=== PATIENT | male | born 1980 | race Caucasian/White ===

== ENCOUNTER 2018-08-20 14:27 | Inpatient (IN) | payer OTHER ==
--- NOTE | 2018-08-20 14:54 | EDPHY ---
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 He states that 4 days ago he developed some swelling in his right arm. It is gradually decreased since then. Today he presented to his primary Dr. Mario Cagle who had an ultrasound done that revealed right upper extremity DVT. He sent him here with a disc. The patient otherwise a denies chest pain or shortness of breath or other systemic symptoms. No leg pain or swelling. He is not tachycardic. Patient states that the day before his symptoms developed he was doing a deep tissue massage in his right axilla to release tendons. 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 He thinks that this may provoked to symptoms. No erythema or warmth. Severity: Mild Modifying factors: Gradually improving REVIEW OF SYSTEMS: Constitutional: denies: chills, fever, recent illness, recent injury EENTM: denies: blurred vision, double vision, nose congestion Respiratory: denies: cough, shortness of breath Cardiac: denies: chest pain, irregular heart rate, lightheadedness, palpitations Gastrointestinal/Abdominal: denies: abdominal pain, diarrhea, nausea, vomiting, blood streaked stools Genitourinary: denies: dysuria, frequency, hematuria, pain Musculoskeletal: See HPI Skin: denies: lesions, rash, jaundice, bruising Neurological: denies: headache, numbness, paresthesia, tingling, dizziness, weakness Hematologic/Lymphatic: denies: blood clots, easy bleeding, easy bruising Immunologic/allergic: denies: HIV/AIDS, transplant 10 systems reviewed and negative except as noted EXAM: GENERAL: Well-appearing, well-nourished and in no acute distress. HEAD: Atraumatic, normocephalic. EYES: Pupils equal round and reactive to light, extraocular movements intact, sclera anicteric, conjunctiva are normal. ENT: TMs normal, nares patent, oropharynx clear without exudates. Moist mucous membranes. NECK: Normal range of motion, supple without lymphadenopathy or JVD. LUNGS: Breath sounds clear to auscultation bilaterally and equal. No wheezes rales or rhonchi. HEART: Regular rate and rhythm without murmurs, rubs or gallops. ABDOMEN: Soft, nontender, normoactive bowel sounds. No guarding, no rebound. No masses appreciated. BACK: No CVA tenderness, no spinal tenderness, step-offs or deformities EXTREMITIES: Minimal swelling to right forearm and wrist. Normal range of motion. Minimal bruising to right anterior shoulder. Normal sensation and strength. NEUROLOGICAL: Cranial nerves II through XII grossly intact. Normal speech, normal gait. 5/5 strength, normal movement in all extremities, normal sensation , normal reflexes PSYCH: Normal mood, normal affect. SKIN: Warm, dry, normal turgor, no visible rashes or lesions. Source: Patient Exam Limitations: No limitations - Personal History Current Tetanus Diphtheria and Acellular Pertussis (TDAP): Yes - Medical/Surgical History Hx Asthma: No Hx Chronic Respiratory Disease: No Hx Diabetes: No Hx Cardiac Disease: No Hx Renal Disease: No Hx Cirrhosis: No Hx Alcoholism: No Hx HIV/AIDS: No Hx Splenectomy or Spleen Trauma: No Other PMH: denies - Family History Significant Family History: No pertinent family hx - Social History Smoking Status: Current every day smoker Alcohol Use: Sober Drug Use: None Constitutional: Initial Vital Signs Temperature (C) 36.7 C 08/20/18 14:30 Heart Rate 57 L 08/20/18 14:30 Respiratory Rate 18 08/20/18 14:30 Blood Pressure 156/98 H 08/20/18 14:30 O2 Sat (%) 96 08/20/18 14:30 O2 Delivery Mode Room Air Allergies/Adverse Reactions: No Known Allergies Allergy (Unverified 08/20/18 14:33) Home Medications: Medication Instructions Recorded Ibuprofen [Motrin (*)] 400 mg PO BID PRN 08/20/18 Medical Decision Making ED Course/Re-evaluation: Our radiologist are unable to adequately read the images sent on the disc. We did contact [facility] and received a report from them. They read extensive occlusive right subclavian, axillary and brachial vein thrombosis. I will discuss this with interventional Radiology. I did [facility] who feels like if the patient is relatively asymptomatic he can simply be treated at home with Xarelto. 3:15 p.m. I discussed the case with Baljit Nguyen. She recommends the patient receive thrombolysis for what is likely thoracic outlet syndrome and be evaluated for an extra rib and have surgery remove the extra of his present. She states that this can happen tomorrow if the patient stays here tonight on heparin or it could be done as an elective procedure if he stays overnight on Sunday night on a heparin drip. The patient is the uninsured and is questioning which option would be cheaper. Will have case management speak with him. 3:30 p.m. discussed the case with Dr. Centeno who will admit. Will keep on heparin drip tonight. Case management spoke with financial counseling who agrees that the best option is for the patient to stay overnight tonight. Differential Diagnosis: Partial list of the Differential diagnosis considered include but were not limited to; DVT, thoracic outlet syndrome and although unlikely based on the history and physical exam, I also considered fracture, infection, dissection. - Data Points Laboratory Results: Laboratory Results 08/20/18 14:53 08/20/18 14:53 08/20/18 08/20/18 08/20/18 14:53 14:53 14:53 WBC 7.02 10^3/uL 10^3/uL (3.80-9.50) RBC 4.92 10^6/uL 10^6/uL (4.40-6.38) Hgb 15.4 g/dL g/dL (13.7-17.5) Hct 46.1 % % (40.0-51.0) MCV 93.7 fL fL (81.5-99.8) MCH 31.3 pg pg (27.9-34.1) MCHC 33.4 g/dL g/dL (32.4-36.7) RDW 12.6 % % (11.5-15.2) Plt Count 255 10^3/uL 10^3/uL (150-400) MPV 9.3 fL fL (8.7-11.7) Neut % (Auto) 67.5 % % (39.3-74.2) Lymph % (Auto) 22.1 % % (15.0-45.0) Barton % (Auto) 6.8 % % (4.5-13.0) Eos % (Auto) 2.4 % % (0.6-7.6) Baso % (Auto) 1.1 % % (0.3-1.7) Nucleat RBC Rel Count 0.0 % % (0.0-0.2) Absolute Neuts (auto) 4.73 10^3/uL 10^3/uL (1.70-6.50) Absolute Lymphs (auto) 1.55 10^3/uL 10^3/uL (1.00-3.00) Absolute Monos (auto) 0.48 10^3/uL 10^3/uL (0.30-0.80) Absolute Eos (auto) 0.17 10^3/uL 10^3/uL (0.03-0.40) Absolute Basos (auto) 0.08 10^3/uL 10^3/uL (0.02-0.10) Absolute Nucleated RBC 0.00 10^3/uL 10^3/uL (0-0.01) Immature Gran % 0.1 % % (0.0-1.1) Immature Gran # 0.01 10^3/uL 10^3/uL (0.00-0.10) PT 12.7 SEC SEC (12.0-15.0) INR 0.99 (0.83-1.16) APTT 27.2 SEC SEC (23.0-38.0) Sodium 140 mEq/L mEq/L (135-145) Potassium 4.2 mEq/L mEq/L (3.5-5.2) Chloride 106 mEq/L mEq/L (97-110) Carbon Dioxide 24 mEq/l mEq/l (22-31) Anion Gap 10 mEq/L mEq/L (6-14) BUN 12 mg/dL mg/dL (7-23) Creatinine 0.9 mg/dL mg/dL (0.7-1.3) Estimated GFR > 60 Glucose 86 mg/dL mg/dL (70-100) Calcium 9.8 mg/dL mg/dL (8.5-10.4) Medications Given: Discontinued Medications Heparin Sodium (Porcine) (Heparin Injection) 0 unit IVP EDNOW ONE Stop: 08/20/18 15:37 Last Admin: 08/20/18 16:09 Dose: 5,520 units Heparin Sodium (Porcine) (Heparin 50 Units/Ml (Premix)) 500 mls @ 0 mls/hr IV EDNOW ONE; Per Protocol PRN Reason: Protocol Stop: 08/20/18 15:37 Last Admin: 08/20/18 16:10 Dose: 500 mls Departure - Departure Disposition: [facility] Acute Clinical Impression: Deep venous thrombosis of right upper extremity Qualifiers: Affected thrombotic vein of extremity: unspecified vein of extremity Chronicity : acute Qualified Code(s): I82.621 - Acute embolism and thrombosis of deep veins of right upper extremity Condition: Fair
[2018-08-20 15:06] LABS: PLATELET COUNT 255 10^3/uL (150-400)
[2018-08-20 15:23] LABS: INR 0.99 (0.83-1.16); PROTIME(PATIENT) 12.7 SEC (12.0-15.0)
[2018-08-20] MEDS ORDERED: HEPARIN/DEXTROSE 500 ML IV ONE (15:36)
[2018-08-20] MEDS ORDERED: HEPARIN 10,000 UNIT/10 ML MDV (1,000 UNIT/ML) IVP ONE (15:36)
[2018-08-20] MEDS ORDERED: ONDANSETRON 4 MG/2 ML VIAL IVP PRN (16:09)
[2018-08-20] MEDS ORDERED: ONDANSETRON DISINTEGRATING 4 MG TAB PO PRN (16:09)
[2018-08-20] MEDS ORDERED: ACETAMINOPHEN 325 MG TAB PO PRN (16:09)
[2018-08-20] MEDS ORDERED: NS 1,000 ML IV SCH (16:15)
--- NOTE | 2018-08-20 16:22 | PDGENHP ---
History and Physical - Chief Complaint left arm swelling - History of Present Illness Yovany Antonio is a 37-year-old male with no past medical history who presented to the emergency room with complaints of right upper extremity swelling since of last week. He denied any trauma to his arm. 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 He thought he just had tight muscles and so gave himself a bicep massage. Sunday the swelling was skin considerably worse. Over the next few days the swelling mildly diminished. He saw his friend who was a masseuse who immediately said he needed to see a doctor and so he saw a primary care physician today. They obtained a upper extremity ultrasound did sent into the emergency room. He has denied any shortness of breath or pain in his upper extremity. He still has good pulses and does not feel any tingling or paresthesias. Otherwise he denied any cough shortness of breath fevers chills nausea vomiting or other symptoms. History Information - Allergies/Home Medication List Allergies/Adverse Reactions: No Known Allergies Allergy (Unverified 08/20/18 14:33) Home Medications: Ibuprofen [Motrin (*)] 400 mg PO BID PRN 08/20/18 [Last Taken 08/19/18] Zeolite 1 each PO DAILY 08/20/18 [Last Taken Unknown] I have personally reviewed and updated: family history, medical history, social history, surgical history - Past Medical History no pertinent PMH - Surgical History Reports: no pertinent surgical hx - Family History Positive for: non-pertinent - Social History Smoking Status: Current every day smoker Alcohol Use: Sober Drug Use: None, Marijuana Review of Systems Review of Systems: ROS: 10pt was reviewed & negative except for what was stated in HPI & below Physical Exam Physical Exam: Temp Pulse Resp BP Pulse Ox 36.7 C 55 L 16 152/91 H 96 08/20/18 14:30 08/20/18 16:00 08/20/18 16:00 08/20/18 16:00 08/20/18 16:00 Constitutional: no apparent distress, appears nourished, not in pain Eyes: PERRL, anicteric sclera, EOMI Ears, Nose, Mouth, Throat: moist mucous membranes, hearing normal, ears appear normal, no oral mucosal ulcers Cardiovascular: regular rate and rhythym, no murmur, rub, or gallop, No edema ( Right upper extremity with substantial swelling. Radial pulses still 2+ good capillary refill) Respiratory: no respiratory distress, no rales or rhonchi, clear to auscultation Gastrointestinal: normoactive bowel sounds, soft, non-tender abdomen, no palpable masses Genitourinary: no bladder fullness, no bladder tenderness Skin: warm, normal color, no rashes or abrasions, no fluctuance, no induration, No mottled Musculoskeletal: full muscle strength, no muscle tenderness, normal joint ROM, no joint effusions Psychiatric: interacting appropriately, not anxious, not encephalopathic, thought process linear Lymph, Heme, Immunologic: no cervical LAD, no supraclavicular LAD Lab Data & Imaging Review 08/21/18 11:05 08/21/18 04:46 WBC 7.02 10^3/uL (3.80-9.50) 08/20/18 14:53 RBC 4.92 10^6/uL (4.40-6.38) 08/20/18 14:53 Hgb 15.4 g/dL (13.7-17.5) 08/20/18 14:53 Hct 46.1 % (40.0-51.0) 08/20/18 14:53 MCV 93.7 fL (81.5-99.8) 08/20/18 14:53 MCH 31.3 pg (27.9-34.1) 08/20/18 14:53 MCHC 33.4 g/dL (32.4-36.7) 08/20/18 14:53 RDW 12.6 % (11.5-15.2) 08/20/18 14:53 Plt Count 255 10^3/uL (150-400) 08/20/18 14:53 MPV 9.3 fL (8.7-11.7) 08/20/18 14:53 Neut % (Auto) 67.5 % (39.3-74.2) 08/20/18 14:53 Lymph % (Auto) 22.1 % (15.0-45.0) 08/20/18 14:53 Pope % (Auto) 6.8 % (4.5-13.0) 08/20/18 14:53 Eos % (Auto) 2.4 % (0.6-7.6) 08/20/18 14:53 Baso % (Auto) 1.1 % (0.3-1.7) 08/20/18 14:53 Nucleat RBC Rel Count 0.0 % (0.0-0.2) 08/20/18 14:53 Absolute Neuts (auto) 4.73 10^3/uL (1.70-6.50) 08/20/18 14:53 Absolute Lymphs (auto) 1.55 10^3/uL (1.00-3.00) 08/20/18 14:53 Absolute Monos (auto) 0.48 10^3/uL (0.30-0.80) 08/20/18 14:53 Absolute Eos (auto) 0.17 10^3/uL (0.03-0.40) 08/20/18 14:53 Absolute Basos (auto) 0.08 10^3/uL (0.02-0.10) 08/20/18 14:53 Absolute Nucleated RBC 0.00 10^3/uL (0-0.01) 08/20/18 14:53 Immature Gran % 0.1 % (0.0-1.1) 08/20/18 14:53 Immature Gran # 0.01 10^3/uL (0.00-0.10) 08/20/18 14:53 PT 12.7 SEC (12.0-15.0) 08/20/18 14:53 INR 0.99 (0.83-1.16) 08/20/18 14:53 APTT 27.2 SEC (23.0-38.0) 08/20/18 14:53 Sodium 140 mEq/L (135-145) 08/20/18 14:53 Potassium 4.2 mEq/L (3.5-5.2) 08/20/18 14:53 Chloride 106 mEq/L (97-110) 08/20/18 14:53 Carbon Dioxide 24 mEq/l (22-31) 08/20/18 14:53 Anion Gap 10 mEq/L (6-14) 08/20/18 14:53 BUN 12 mg/dL (7-23) 08/20/18 14:53 Creatinine 0.9 mg/dL (0.7-1.3) 08/20/18 14:53 Estimated GFR > 60 08/20/18 14:53 Glucose 86 mg/dL (70-100) 08/20/18 14:53 Calcium 9.8 mg/dL (8.5-10.4) 08/20/18 14:53 Assessment & Plan Assessment: Deep venous thrombosis of right upper extremity- ultrasound reviewed which shows occlusive thrombus of the subclavian and brachiocephalic veins. I discussed the case with Interventional Radiology who feels the patient's clot burden warrants thrombolysis. Will also likely need evaluation for thoracic outlet syndrome and cervical rib. Labs stable. Exam reassuring. Will start on heparin drip and plan on IR guided thrombolysis in the morning. -NPO at midnight -start heparin drip now -IR to see the patient the morning -consult General surgery for further evaluation of thoracic outlet syndrome Prophylaxis- heparin drip, SCDs Fluids- saline Electrolytes- within normal limits Nutrition- regular diet that NPO midnight Cor-full Dispo- inpatient for occlusive DVT, thrombolysis and evaluation of thoracic outlet syndrome
--- NOTE | 2018-08-20 22:16 | PDMN ---
Medical Necessity Medical necessity: Pt meets inpt criteria per MD order and Vascular Disease GRG , DVT of RUE, US shows occlusive thrombus of the subclavian and brachiocephalic veins, IR consult: will need thrombolysis in AM, heparin gtt started. Pt will need eval for thoracic outlet syndrome and cervical rib. Anticipate>2MN for further eval/management of above.
[2018-08-21 05:14] LABS: PLATELET COUNT 208 10^3/uL (150-400)
[2018-08-21 05:26] LABS: INR 1.04 (0.83-1.16); PROTIME(PATIENT) 13.2 SEC (12.0-15.0)
[2018-08-21] MEDS ORDERED: MEPERIDINE 25 MG/ML SYR IVP PRN (07:26)
[2018-08-21] MEDS ORDERED: FLUMAZENIL 0.5 MG/5 ML MDV IVP PRN (07:26)
[2018-08-21] MEDS ORDERED: NALOXONE HCL 0.4 MG/ML INJ IVP PRN ×2 (07:26→16:19)
[2018-08-21] MEDS ORDERED: MIDAZOLAM 2 MG/2 ML VIAL IVP PRN (07:26)
[2018-08-21] MEDS ORDERED: fentaNYL 100 MCG/2 ML INJ IVP PRN (07:26)
[2018-08-21] MEDS ORDERED: NS 1,000 ML IV SCH (07:30)
[2018-08-21] MEDS ORDERED: ATROPINE SULFATE 1 MG/10 ML SYR ONE (08:08)
[2018-08-21] MEDS ORDERED: IOPAMIDOL (ISOVUE-300) 100 ML BTL ONE (08:32)
[2018-08-21] MEDS ORDERED: fentaNYL 100 MCG/2 ML INJ ONE (08:43)
[2018-08-21] MEDS ORDERED: MIDAZOLAM 2 MG/2 ML VIAL ONE (08:43)
[2018-08-21] MEDS ORDERED: HEPARIN/DEXTROSE 25,000 UNIT/500 ML BAG ONE (09:07)
[2018-08-21] MEDS ORDERED: ALTEPLASE 5 MG in NS 100 ML IV ONE (09:15)
[2018-08-21] MEDS ORDERED: LIDOCAINE 1% 300 MG/30 ML SDV ONE (09:21)
[2018-08-21] MEDS ORDERED: PROMETHAZINE HCL 25 MG/ML INJ IVP PRN (09:22)
[2018-08-21] MEDS ORDERED: LORazepam 1 MG TAB PO PRN (09:22)
--- NOTE | 2018-08-21 09:26 | PDPROPOC ---
Sedation Plan of Care ASA Classification: ASA 2 Mallampati Score: Class 2 Mallampati Reference Image:
--- NOTE | 2018-08-21 09:26 | PDRADPN ---
Radiology Procedure Note Date of Procedure: 08/21/18 Radiologist: Michelle Rivera Anesthesia: IV Sedation Pre-op Diagnosis: TOS Post-op Diagnosis: same Procedure: day 1 lysis subclavian vein Inf/Abcess present in the surg proc area at time of surgery?: No
[2018-08-21] MEDS ORDERED: HEPARIN/DEXTROSE 500 ML IV SCH (09:30)
[2018-08-21] MEDS: HYDROmorphONE/DILAUDID 1 MG/ML INJ IVP PRN ×3 (11:53→16:20)
--- NOTE | 2018-08-21 12:11 | HOSPPROG ---
Hospitalist Progress Note Assessment/Plan: # RUE DVT - currently getting tPA lysis - will need AC # TOS - discussed with Dr Craig who will review the venogram and consider 1st rib resection Subjective: s/p venogram and thrombolysis; c/o R arm pain Objective: Vital Signs Temp Pulse Resp BP Pulse Ox 37.0 C 72 14 117/75 97 08/21/18 11:00 08/21/18 11:00 08/21/18 11:00 08/21/18 11:00 08/21/18 11:00 Laboratory Results 08/21/18 11:05 08/21/18 04:46 PT 13.2 SEC (12.0-15.0) 08/21/18 04:46 INR 1.04 (0.83-1.16) 08/21/18 04:46 chart reviewed venogram reviewed - Physical Exam Constitutional: no apparent distress, appears nourished Cardiovascular: regular rate and rhythym, no murmur, rub, or gallop Respiratory: no respiratory distress, no rales or rhonchi, clear to auscultation Gastrointestinal: soft, non-tender abdomen, no palpable masses, No guarding, No rebound Musculoskeletal: other (R arm edematous with catheter) ICD10 Worksheet Patient Problems: Problems Problem Status Onset Deep venous thrombosis of right upper extremity Acute
[2018-08-21] MEDS: ALTEPLASE 5 MG in NS 100 ML IV SCH ×3 (13:23→23:23)
[2018-08-21] MEDS ORDERED: HYDROmorphONE/DILAUDID 6 MG/30 ML PCA IV PRN (16:19)
[2018-08-22] MEDS: ALTEPLASE 5 MG in NS 100 ML IV SCH (05:58)
[2018-08-22 06:24] LABS: PLATELET COUNT 204 10^3/uL (150-400)
[2018-08-22] MEDS ORDERED: fentaNYL 100 MCG/2 ML INJ IVP PRN ×2 (09:10→09:12)
[2018-08-22] MEDS ORDERED: MIDAZOLAM 2 MG/2 ML VIAL IVP PRN ×2 (09:10→09:12)
[2018-08-22] MEDS ORDERED: FLUMAZENIL 0.5 MG/5 ML MDV IVP PRN (09:10)
[2018-08-22] MEDS ORDERED: NALOXONE HCL 0.4 MG/ML INJ IVP PRN (09:12)
[2018-08-22] MEDS ORDERED: NS 1,000 ML IV SCH (09:15)
[2018-08-22] MEDS ORDERED: IOPAMIDOL (ISOVUE-300) 100 ML BTL ONE (09:27)
[2018-08-22] MEDS ORDERED: APIXABAN 5 MG TAB PO SCH (11:00)
[2018-08-22 11:03] VITALS: BP 126/86
--- NOTE | 2018-08-22 11:32 | ASMTCMCOM ---
CM Note CM Note Notes: Patient admitted for RUE DVT. He is POD #1 lysis by IR. Will need AC - pharmacy provided him w coupon for Eliquis. He is normally independent. Lives with mother. [employer] screened for Medicaid. No d/c needs identified. Date Signed: 08/22/2018 11:31 AM Electronically Signed By:Hollie Berg RN
--- NOTE | 2018-08-23 12:49 | GDS ---
[f rep st] DISCHARGE SUMMARY DISCHARGE DIAGNOSES: 1. Right upper extremity deep venous thrombosis. 2. Thoracic outlet syndrome. CONSULTATIONS: IR. PROCEDURES: DVT lysis. HISTORY OF PRESENT ILLNESS: A 37-year-old male with no past medical history, who presented with righ t upper extremity swelling for the past week. Denied trauma to the arm. 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 He thought it was just due to tight muscles. He saw his friend, who is a masseuse, who said he s hould come to the ER, so he saw his PCP. They obtained an upper extremity ultrasound that showed a D VT. HOSPITAL COURSE BY PROBLEM: 1. Subclavian occlusion with collateralization: IR consulted, and the patient underwent thrombolysi s with resolution of clot. He will be discharged home on Eliquis. Dr. Craig consulted and will see him in clinic in 1 to 2 weeks with consideration for removal. 2. Thoracic outlet syndrome: Cause for #1. Anticoagulation and surgical followup. DISPOSITION: The patient is stable for discharge home. NEW MEDICATIONS: Eliquis. FOLLOWUP: 1. PCP. 2. Dr. Craig. PHYSICAL EXAM: VITAL SIGNS: Temperature afebrile, blood pressure 126/86, heart rate in the 60s, res pirations 16, and 97% on room air. GENERAL: He is well appearing, in no acute distress. HEENT: PE RRLA. Moist mucous membranes. CV: Regular rate and rhythm. LUNGS: Clear. ABDOMEN: Soft and non tender. EXTREMITIES: Right arm with significant swelling. A +2 radial pulse. No ulceration or sig ns of cellulitis. PSYCHIATRIC: Alert and oriented x3. TIME SPENT ON DISCHARGE: Greater than 30 minutes coordinating with Case Management and Surgery, and discussing followup plan with the patient. /[id number]/MODL
--- NOTE | 2018-08-24 15:43 | GCON ---
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 This became progressively worse and he came to the ER and was found to have thoracic outlet syndrome with venous occlusion. This problem has caused some arm s welling and some tiredness and weakness in his hand particularly in his flue blower. He has had no evidence of chest pain or shortness of breath. On this hospitalization. He underwent venography and thrombo lysis with demonstration of a tight area in the subclavian vein as it goes over the 1st rib, he has n ear occlusion with his arms held up above, but a very focal area of narrowing. ALLERGIES: None. MEDICATIONS: None except for Advil. PAST MEDICAL HISTORY: Negative for any major medical problems or hospitalizations. PAST SURGICAL HISTORY: Negative as well. FAMILY HISTORY: Noncontributory. SOCIAL HISTORY: Reveals he is not . 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 REVIEW OF SYSTEMS: Negative on a full 10-point review except as related to the HPI. PHYSICAL EXAM: GENERAL: This is an alert healthy 37-year-old male in no acute distress. VITAL SIGN S: Afebrile. HEAD and NECK: Reveals no evidence of adenopathy or cervical ribs. He is nonicteric. Pupils are equal and reactive. EOMs are intact. There are no oral lesions. NECK: Supple with fu ll range of motion. No carotid bruits. CHEST: Clear and symmetric. CARDIAC: Exam reveals regular a rhythm without murmurs. ABDOMEN: Soft and nontender. PELVIS: Intact and nontender. EXTREMITIE S: Reveal full range of motion, full pulses. He has some mild swelling in the left upper extremity and some slight color changes to his distal fingers the right arm. NEUROLOGIC: Exam is physiologic. PSYCH: Exam reveals him to be alert, oriented, and cooperative. 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 PLAN: Continue anticoagulation. We will see him in the office as an outpatient for planning and medhat eduling of a 1st rib resection on the right. He knows he will need to stay on full anticoagulation f or at least 3 months and he will have to make arrangements at work to avoid using his right arm for s ome time. Risks and options were fully discussed. We will see him as an outpatient. /[id number]/MODL
== END 2018-08-22 13:00 | disposition home or self-care (01) | DRG 300 ==
LOC: OBSVTOIN 16:18 → F3E 16:25 → F2N 08-21 08:58
PROVIDERS: ADMIT Internal Medicine; ATTEND Internal Medicine
PROC: 3E04317 Introduction of Other Thrombolytic into Central Vein, Percutaneous Approach (ICD-10-PCS; principal; 2018-08-21)
PROC: B5161ZZ Fluoroscopy of Right Subclavian Vein using Low Osmolar Contrast (ICD-10-PCS; principal; 2018-08-21)
PROC: B5161ZZ Fluoroscopy of Right Subclavian Vein using Low Osmolar Contrast (ICD-10-PCS; 2018-08-22)
DX: I82.B11 Acute embolism and thrombosis of right subclavian vein (principal); I82.621 Acute embolism and thrombosis of deep veins of right upper extremity; I87.1 Compression of vein; G54.0 Brachial plexus disorders; F17.210 Nicotine dependence, cigarettes, uncomplicated
CPT/HCPCS: 85520-90; 96374; C1757; C1769; C1894; J0461; J1170; J1644; J2250; J2270; J2310; J2997; J3010; Q9967